=== PATIENT | female | born 1975 | race Two or more races ===

== ENCOUNTER 2023-07-03 11:00 | Day surgery (SDC) | payer OTHER ==
[~2023-07-03] VITALS: Ht 160 cm; Wt 93.9 kg
[~2023-07-03 11:00] MED LIST: DILT PO; HORIZANT300 MG PO; LOSART PO
== END 2023-07-03 16:20 | disposition home or self-care (01) ==
LOC: CIR.AMB 11:00
PROVIDERS: ATTEND Orthopaedic Surgery Hand Surgery
DX: D49.89 Neoplasm of unspecified behavior of other specified sites (principal); R22.31 Localized swelling, mass and lump, right upper limb; I10 Essential (primary) hypertension; Z20.822 Contact with and (suspected) exposure to COVID-19